=== PATIENT | male | born 1950 ===

== ENCOUNTER 2018-09-24 07:16 | Outpatient (CLI) | payer OTHER ==
[~2018-09-24] VITALS: Ht 180.3 cm; Wt 98.9 kg
[2018-09-24] MEDS ORDERED: FLONASE16 GM NASAL (09:05)
[2018-09-24] MEDS ORDERED: ZYRTEC10 MG PO (09:05)
[2018-09-24] MEDS ORDERED: MEDROL4 MG PO (09:05)
[2018-09-24] MEDS ORDERED: CEFUROXIME500 MG PO (09:05)
== END 2018-09-24 07:35 | disposition home or self-care (01) ==
LOC: OFIC 805 07:16
DX: J01.40 Acute pansinusitis, unspecified (principal); J33.8 Other polyp of sinus; J31.0 Chronic rhinitis; J34.3 Hypertrophy of nasal turbinates; R43.9 Unspecified disturbances of smell and taste; R05 Cough

== ENCOUNTER 2018-10-08 07:33 | Outpatient (CLI) | payer OTHER ==
[~2018-10-08] VITALS: Ht 152.4 cm; Wt 98.9 kg
[~2018-10-08 07:33] MED LIST: CEFUROXIME500 MG PO; FLONASE16 GM NASAL; MEDROL4 MG PO; ZYRTEC10 MG PO
[2018-10-08] MEDS ORDERED: MEDROL4 MG PO (08:44)
== END 2018-10-08 07:48 | disposition home or self-care (01) ==
LOC: OFIC 805 07:33
DX: J32.4 Chronic pansinusitis (principal); J33.9 Nasal polyp, unspecified; J34.3 Hypertrophy of nasal turbinates; R43.9 Unspecified disturbances of smell and taste; R05 Cough; J45.901 Unspecified asthma with (acute) exacerbation

== ENCOUNTER 2018-11-19 07:14 | Outpatient (CLI) | payer OTHER ==
[~2018-11-19] VITALS: Ht 152.4 cm; Wt 98.9 kg
== END 2018-11-19 07:30 | disposition home or self-care (01) ==
LOC: OFIC 805 07:14
DX: J32.4 Chronic pansinusitis (principal); J33.9 Nasal polyp, unspecified; J31.0 Chronic rhinitis; J34.3 Hypertrophy of nasal turbinates; R43.9 Unspecified disturbances of smell and taste; R05 Cough; J45.998 Other asthma

== ENCOUNTER 2018-12-17 07:57 | Outpatient (CLI) | payer OTHER ==
[~2018-12-17] VITALS: Ht 152.4 cm; Wt 97.5 kg
== END 2018-12-17 08:15 | disposition home or self-care (01) ==
LOC: OFIC 805 07:57
DX: J32.4 Chronic pansinusitis (principal); J33.8 Other polyp of sinus; J34.3 Hypertrophy of nasal turbinates; R43.9 Unspecified disturbances of smell and taste

== ENCOUNTER 2019-01-07 07:28 | Outpatient (CLI) | payer OTHER ==
[~2019-01-07] VITALS: Ht 152.4 cm; Wt 97.5 kg
== END 2019-01-07 07:45 | disposition home or self-care (01) ==
LOC: OFIC 805 07:28
DX: J32.4 Chronic pansinusitis (principal); J33.8 Other polyp of sinus; J31.0 Chronic rhinitis; J34.3 Hypertrophy of nasal turbinates; R43.9 Unspecified disturbances of smell and taste; R05 Cough; J45.998 Other asthma

== ENCOUNTER 2019-01-21 07:54 | Outpatient (CLI) | payer OTHER ==
[~2019-01-21] VITALS: Ht 152.4 cm; Wt 97.5 kg
[2019-01-21] MEDS ORDERED: FLONASE16 GM NASAL (08:51)
== END 2019-01-21 08:15 | disposition home or self-care (01) ==
LOC: OFIC 805 07:54
DX: J32.4 Chronic pansinusitis (principal); J31.0 Chronic rhinitis; J33.9 Nasal polyp, unspecified

== ENCOUNTER 2019-04-15 07:07 | Outpatient (CLI) | payer OTHER ==
[~2019-04-15] VITALS: Ht 152.4 cm; Wt 97.5 kg
[2019-04-15] MEDS ORDERED: ZYRTEC10 MG PO (09:00)
[2019-04-15] MEDS ORDERED: FLONASE16 GM NASAL (09:00)
== END 2019-04-15 14:49 | disposition home or self-care (01) ==
LOC: OFIC 805 07:07
DX: J32.4 Chronic pansinusitis (principal); J33.8 Other polyp of sinus; J31.0 Chronic rhinitis; J34.3 Hypertrophy of nasal turbinates; R43.8 Other disturbances of smell and taste; R05 Cough; J45.998 Other asthma; Z87.09 Personal history of other diseases of the respiratory system